=== PATIENT | female | born 1985 | race Caucasian/White ===

== ENCOUNTER 2017-10-07 11:10 | Emergency (ER) | payer OTHER ==
[~2017-10-07] VITALS: Ht 160 cm; Wt 71.6 kg
[~2017-10-07 11:10] MED LIST: ADVAIR 500/501 DISK IH; ALBUTEROL SULF8.5 GM IH; ANAPROX DS550 M1 PO; ANTIPYRINE-BENZ15 ML BOTH EARS; BENADRYL ALLERG25 MG PO; CLINDAMYCIN HC300 MG PO; DEPO; DEPO-PROVER150 MG/ML IM; FLEXERIL10 MG PO; HYCODAN SYRUP480 ML PO; IBUPROFEN800 MG PO; INDOCIN25 MG PO; LO-DOSE ASPIRIN81 M1 PO; LORTAB 5-325 M1 EACH PO; MIDOL1 TABLET PO; MOTRIN IB200 MG PO; MOTRIN600 MG PO; MOTRIN800 MG PO; NAPROSYN375 MG PO; NOHOMEMEDS; NORCO 5/3251 TABLET PO; ROBITUSSIN AC,T10 ML PO; TESSALON PERLE100 MG PO; TESSALON200 MG PO; TRAMADOL HCL50 MG PO; VALIUM5 MG PO; VENTOLIN HFA18 GM IH; VOLTAREN-XR100 MG PO; ZITHROMAX Z-PA250 MG PO
[2017-10-07 11:41] LABS: HEMATOCRIT 39.4 % (36.0-46.0); HEMOGLOBIN 13.5 G/DL (11.9-15.5); MCHC 34.3 G/DL (30.0-36.0); MCV 90.6 FL (83-99); PLATELET COUNT 236 K/uL (156-360); RBC DIS.WIDTH-CV 12.2 % (11.8-14.6); RBC DIS.WIDTH-SD 40.2 % (39-53); RED BLOOD COUNT 4.35 M/uL (3.80-5.20); WHITE BLOOD COUNT 13.3 K/uL (4.1-10.2)
[2017-10-07 11:51] LABS: CHLORIDE 111 mEq/L (99-109); SODIUM 138 mEq/L (136-147)
[2017-10-07 11:52] LABS: GLUCOSE 172 mg/dL (70-99)
[2017-10-07 11:56] LABS: CREATININE 0.7 mg/dL (0.6-1.3); GFR ESTIMATE (CALCULATED) > 59 mL/min/
[2017-10-07 11:57] LABS: UREA NITROGEN (BUN) 12 mg/dL (9-23)
[2017-10-07 12:01] LABS: TROP-I INTERPRETATION NEGATIVE; TROPONIN-I < 0.01 ng/mL (0.0-0.30)
[2017-10-07 12:06] LABS: QUANTITATIVE HCG < 4.0 MIU/ML
[2017-10-07 12:14] LABS: APPEARANCE CLEAR ((CLEAR)); BILIRUBIN NEGATIVE; BLOOD SMALL; COLOR STRAW ((YELLOW)); GLUCOSE (STRIP) NEGATIVE; KETONES NEGATIVE; LEUKOCYTES NEGATIVE; NITRITE NEGATIVE; PROTEIN (STRIP) NEGATIVE; SPECIFIC GRAVITY 1.006 (1.000-1.030); UROBILINOGEN 0.2 MG/DL (0.2-1.0)
[2017-10-07 12:29] LABS: BACTERIA NONE SEEN /HPF; EPITHELIAL CELLS 1+ /HPF; MUCUS TRACE /LPF; RED BLOOD CELLS 0-5 /HPF (0-5); UCUL ADDED? NO; WHITE BLOOD CELLS 0-5 /HPF (0-5)
[2017-10-07 15:08] LABS: TROP-I INTERPRETATION NEGATIVE; TROPONIN-I < 0.01 ng/mL (0.0-0.30)
[2017-10-07 15:56] VITALS: BP 143/85
== END 2017-10-07 15:57 | disposition home or self-care (01) ==
LOC: EME 11:10
PROVIDERS: Nurse Practitioner Family
DX: R07.2 Precordial pain (principal); I44.7 Left bundle-branch block, unspecified; I10 Essential (primary) hypertension; E78.00 Pure hypercholesterolemia, unspecified; J45.909 Unspecified asthma, uncomplicated; F17.200 Nicotine dependence, unspecified, uncomplicated; Z87.442 Personal history of urinary calculi; Z88.2 Allergy status to sulfonamides
CPT/HCPCS: 71046; 80048; 81003; 84484; 84702; 85027; 93005; 99281; 99284; J2405